=== PATIENT | female | born 1955 | race Caucasian/White ===

== ENCOUNTER 2019-07-14 20:29 | Inpatient (IN) | payer MEDICARE ==
[~2019-07-14] VITALS: Ht 167.6 cm; Wt 58.2 kg
[2019-07-14] MEDS ORDERED: IV NORMAL SALINE 1000 ML BAG IV ONE (20:45)
[2019-07-14 20:52] LABS: BASOPHILS # (AUTO) 0.1 K/uL (0.0-8.0); BASOPHILS % (AUTO) 0.9 % (0.0-2.0); EOSINOPHILS # (AUTO) 0.2 K/uL (0.0-0.7); EOSINOPHILS % (AUTO) 2.8 % (0.0-7.0); HEMATOCRIT 33.8 % (31.2-41.9); LYMPHOCYTES # (AUTO) 1.8 K/uL (20.0-40.0); LYMPHOCYTES % (AUTO) 24.1 % (20.5-51.5); MEAN CORPUSCULAR HEMOGLOBIN 33.2 uug (24.7-32.8); MEAN CORPUSCULAR HGB CONC 33 g/dL (32.3-35.6); MEAN CORPUSCULAR VOLUME 102.1 fL (75.5-95.3); MONOCYTES # (AUTO) 0.9 K/uL (2.0-10.0); MONOCYTES % (AUTO) 11.7 % (0.0-11.0); NEUTROPHILS # (AUTO) 4.5 K/uL (1.8-8.9); NEUTROPHILS % (AUTO) 60.5 % (38.5-71.5); PLATELET COUNT (AUTO) 426 K/uL (179-408); RED BLOOD CELL COUNT(AUTO) 3.31 MIL/uL (3.63-4.92); WHITE BLOOD COUNT (AUTO) 7.4 K/uL (3.8-11.8)
[2019-07-14 21:05] LABS: BILIRUBIN,DIRECT 0.1 mg/dL (0.0-0.2); BILIRUBIN,TOTAL 0.2 mg/dL (0.2-1.0); CREATININE 0.9 mg/dL (0.6-1.3); POTASSIUM 4.9 mmol/L (3.5-5.1); TOTAL PROTEIN, SERUM 7.5 g/dL (6.4-8.2)
--- NOTE | 2019-07-14 21:10 | NUR ---
PT IS AOX3, ABLE TO SPEAK CLEAR AND COMPLETE SENTENCES PT STATES: "I CAME FROM [place] AND THEY TOLD ME I HAVE TO GO WITH THE GAME FARM HELPER, BECAUSE OF THIS R ELBOW" C/O R ELBOW SWELLING, DENIES TRAUMA NOR RECENT SURGERIES TO THE SITE REPORTS DISCOMFORT TOLERABLE DENIES NVD/FEVERS/CHILLS/SOB MONITORED ACCORDINGLY +PULSES ON BOTH WRISTS, NOTED PINK COLOR, ABLE TO DO ROM WITH DISCOMFORT +CMS CHECK DONE Q15-30 MD AT BEDSIDE FOR HX AND PHYSICAL
--- NOTE | 2019-07-14 21:40 | NUR ---
DR VILLAFANA ON THE PHONE WITH ERMD DR GRAHAM PT WILL BE ADMITTED DUE TO FX OF R ULNA POSTERIOR LONG ARM FIBERGLASS SPLINT EPIC CALLED WAITING DR MELANI CUNHA CALL BACK CALL FOR BED M/S RM 316
[2019-07-14 21:48] LABS: *BILIRUBIN,URIN NEGATIVE (NEGATIVE); *BLOOD, URINE NEGATIVE (NEGATIVE); *CLARITY,URINE CLEAR (CLEAR); *COLOR,URINE YELLOW (YELLOW); *KETONES,URINE NEGATIVE (NEGATIVE); *UROBILINOGEN,URINE 0.2 E.U./dl (NORMAL); LEUKOCYTE ESTERASE ,URINE NEGATIVE (NEGATIVE); NITRITE, URINE NEGATIVE (NEGATIVE); UGLUCOSE NEGATIVE (NEGATIVE)
[2019-07-14] MEDS ORDERED: NA P133E RC (21:49)
[2019-07-14] MEDS ORDERED: MULT1TAB73 PO (21:49)
[2019-07-14] MEDS ORDERED: MAGN400O6 PO (21:49)
[2019-07-14] MEDS ORDERED: ACET325T53 PO (21:49)
[2019-07-14] MEDS ORDERED: IBUP-1955 PO (21:49)
[2019-07-14] MEDS ORDERED: COMBIVENT INH (21:49)
[2019-07-14] MEDS ORDERED: THIA100T13 PO (21:49)
[2019-07-14] MEDS ORDERED: folic acid PO (21:49)
[2019-07-14] MEDS ORDERED: TRAZ-182 PO (21:49)
[2019-07-14] MEDS ORDERED: BISA10SU61 RC (21:49)
--- NOTE | 2019-07-14 22:04 | NUR ---
HAND OFF AND SBAR GIVEN TO DARSHAN BY SUBHASH MENCHACA PT WILL BE ADMITTED TO [facility] RM 316 DX: R ELBOW FRACTURE, UNDER DR CUNHA
--- NOTE | 2019-07-14 22:05 | NUR ---
BELONGINGS LIST SIGNED/ CO-SIGNED ALL BELONGINGS ACCOUNTED FOR
--- NOTE | 2019-07-14 22:23 | NUR ---
PT TRANSPORTED TO [facility]IA [facility] BY EXTENSION EDUCATOR G20 L AC, INTACT AND INFUSING WELL ALL BELONGINGS ACCOUNTED FOR
--- NOTE | 2019-07-14 22:30 | NUR ---
RECEIVED PT FROM ER VIA [facility]. DX: RIGHT ELBOW FRACTURE. UNDER THE CARE OF DR. WEST. PT IN NO ACUTE DISTRESS. IV INTACT. MCC ASSESSMENT DONE.BELONGING LIST DONE. ADMISSION PROCESS AND CARE PLAN INITIATED. SAFETY AND COMFORT PROVIDED. WILL CONTINUE TO MONITOR.
[2019-07-14 22:45] VITALS: BP 179/86
[2019-07-15] MEDS ORDERED: ONDANSETRON 4 MG/2 ML VIAL IV PRN
[2019-07-15] MEDS ORDERED: IV D5 1/2 NS 1000 ML 1,000 ML IV PRN
[2019-07-15] MEDS ORDERED: ACETAMINOPHEN 650 MG SUPP.RECT RC PRN
[2019-07-15] MEDS ORDERED: MORPHINE SULFATE 4 MG/1 ML DISP.SYRIN IV PRN
--- NOTE | 2019-07-15 00:20 | NUR ---
PT REFUSE TO HAVE HER IV INFUSING. CHARGE NURSE AWARE. PT IN NO ACUTE DISTRESS.
[2019-07-15 05:35] VITALS: BP 140/68
[2019-07-15 06:29] LABS: BASOPHILS # (AUTO) 0.1 K/uL (0.0-8.0); BASOPHILS % (AUTO) 2.1 % (0.0-2.0); EOSINOPHILS # (AUTO) 0.2 K/uL (0.0-0.7); EOSINOPHILS % (AUTO) 3.3 % (0.0-7.0); HEMATOCRIT 36.3 % (31.2-41.9); HEMOGLOBIN 11.7 g/dL (10.9-14.3); LYMPHOCYTES # (AUTO) 1.4 K/uL (20.0-40.0); LYMPHOCYTES % (AUTO) 21.8 % (20.5-51.5); MEAN CORPUSCULAR HEMOGLOBIN 32.5 uug (24.7-32.8); MEAN CORPUSCULAR HGB CONC 32 g/dL (32.3-35.6); MEAN CORPUSCULAR VOLUME 100.7 fL (75.5-95.3); MONOCYTES # (AUTO) 0.8 K/uL (2.0-10.0); MONOCYTES % (AUTO) 12.6 % (0.0-11.0); NEUTROPHILS # (AUTO) 3.9 K/uL (1.8-8.9); NEUTROPHILS % (AUTO) 60.2 % (38.5-71.5); PLATELET COUNT (AUTO) 418 K/uL (179-408); RED BLOOD CELL COUNT(AUTO) 3.61 MIL/uL (3.63-4.92); WHITE BLOOD COUNT (AUTO) 6.4 K/uL (3.8-11.8)
[2019-07-15 06:42] LABS: BILIRUBIN,TOTAL 0.2 mg/dL (0.2-1.0); CREATININE 0.7 mg/dL (0.6-1.3); MAGNESIUM 2.3 mg/dL (1.8-2.4); POTASSIUM 4.4 mmol/L (3.5-5.1); TOTAL PROTEIN, SERUM 7.3 g/dL (6.4-8.2)
--- NOTE | 2019-07-15 06:43 | NUR ---
PT IN NO ACUTE RESPIRATORY DISTRESS. PT IV INTACT. SAFETY AND COMFORT PROVIDED. PRESCRIBED MEDICATION GIVEN AND PT TOLERATED IT WELL. WILL ENDORSE TO INCOMING NURSE FOR CONTINUITY OF CARE.
--- NOTE | 2019-07-15 08:15 | NUR ---
Received pt. resting in bed alert oriented x3. Pt. denies pain/ discomfort. Pt. denies SOB/ difficulty breathing. Pt. has IV in L UA 20 gauge intact patent saline lock. Pt. refuses fluids. Educated pt. on importance of fluids. Pt. still refused. Educated pt. on morning medication. pt. refused. morning protonix. Pt. on NPO diet by awaiting to see Dr Alexander. Pt. aware of plan. Safety measures in place. call light within reach. will continue to monitor pt.
[2019-07-15] MEDS ORDERED: BISACODYL 10 MG SUPP.RECT RC PRN (08:30)
[2019-07-15] MEDS ORDERED: MAGNESIUM HYDROXIDE 30 ML LIQUID UDC PO PRN (08:30)
[2019-07-15] MEDS ORDERED: FLEET ENEMA 133 ML BOTTLE RC PRN (08:30)
[2019-07-15] MEDS ORDERED: TRAZODONE 50 MG TABLET PO PRN (08:30)
[2019-07-15] MEDS ORDERED: Medication Not On Formulary EA (Multivitamins (Multivitamin) 1 EACH) PO SCH (09:00)
[2019-07-15] MEDS: FOLIC ACID 1 MG TABLET PO SCH (09:05)
[2019-07-15] MEDS: MULTIVITAMINS,THERAPEUTIC TABLET PO SCH (09:05)
[2019-07-15] MEDS: THIAMINE HCL 100 MG TABLET PO SCH (09:05)
[2019-07-15] MEDS: PANTOPRAZOLE SODIUM 40 MG VIAL IV SCH (09:05)
[2019-07-15] MEDS ORDERED: POLYMYXIN B SULFATE 500,000 UNITS, BACITRACIN 50,000 UNITS, NORMAL SALINE 20 ML MC ONE ×3 (11:15)
[2019-07-15 11:25] VITALS: BP 143/76
[2019-07-15] MEDS ORDERED: BUPIVACAINE PF 0.5% 30 ML VIAL ONE (11:52)
[2019-07-15] MEDS ORDERED: VANCOMYCIN 1000 MG VIAL ONE (11:52)
[2019-07-15] MEDS ORDERED: MIDAZOLAM HCL 10 MG/2 ML VIAL ONE (12:33)
--- NOTE | 2019-07-15 12:43 | NUR ---
Pt. went to surgery. Pt. signed consent form. Pt. stable. Will follow up with patient after surgery when pt. returns
[2019-07-15] MEDS ORDERED: SEVOFLURANE 250 ML BOTTLE ONE (13:33)
[2019-07-15] MEDS ORDERED: FENTANYL CITRATE 100 MCG/2 ML AMPUL ONE (14:42)
[2019-07-15] MEDS ORDERED: hydrALAZINE HCL 20 MG/1 ML VIAL ONE (15:34)
[2019-07-15] MEDS ORDERED: ONDANSETRON 4 MG/2 ML VIAL ONE (15:54)
[2019-07-15] MEDS ORDERED: HYDROMORPHONE 1 MG/1 ML DISP.SYRIN ONE (15:56)
--- NOTE | 2019-07-15 16:36 | NUR ---
Received pt. back from surgery. Pt. stable. Vital signs stable. Pt on 2 L NC. Pt. right extremity is warm, strong pulse, and strong detention attendant. Pt. with SC devices on bilateral feet. Safety measures in place. Call light within reach. Will continue to monitor pt.
[2019-07-15] MEDS: POTASSIUM CHLORIDE 20 MEQ in IV D5 1/2 NS 1000 ML 1,000 ML IV PRN (18:40)
[2019-07-15 20:04] VITALS: BP 103/56
[2019-07-15] MEDS: CEFAZOLIN 1 G in IV DEXTROSE 5% 50 ML IV SCH (20:30)
[2019-07-15] MEDS: HYDROCODONE/APAP 10-325 MG TABLET PO PRN (22:02)
[2019-07-16] MEDS: POTASSIUM CHLORIDE 20 MEQ in IV D5 1/2 NS 1000 ML 1,000 ML IV PRN ×2 (05:25→20:49)
[2019-07-16] MEDS: CEFAZOLIN 1 G in IV DEXTROSE 5% 50 ML IV SCH (05:25)
[2019-07-16 05:56] VITALS: BP 122/72
[2019-07-16 06:42] LABS: BASOPHILS # (AUTO) 0.1 K/uL (0.0-8.0); BASOPHILS % (AUTO) 0.8 % (0.0-2.0); EOSINOPHILS # (AUTO) 0.1 K/uL (0.0-0.7); EOSINOPHILS % (AUTO) 0.7 % (0.0-7.0); HEMATOCRIT 33.7 % (31.2-41.9); HEMOGLOBIN 10.7 g/dL (10.9-14.3); LYMPHOCYTES # (AUTO) 1.8 K/uL (20.0-40.0); LYMPHOCYTES % (AUTO) 19.8 % (20.5-51.5); MEAN CORPUSCULAR HEMOGLOBIN 32.7 uug (24.7-32.8); MEAN CORPUSCULAR HGB CONC 32 g/dL (32.3-35.6); MEAN CORPUSCULAR VOLUME 103.3 fL (75.5-95.3); MONOCYTES % (AUTO) 10.5 % (0.0-11.0); NEUTROPHILS # (AUTO) 6.3 K/uL (1.8-8.9); NEUTROPHILS % (AUTO) 68.2 % (38.5-71.5); PLATELET COUNT (AUTO) 341 K/uL (179-408); RED BLOOD CELL COUNT(AUTO) 3.27 MIL/uL (3.63-4.92); WHITE BLOOD COUNT (AUTO) 9.3 K/uL (3.8-11.8)
--- NOTE | 2019-07-16 06:46 | NUR ---
patient received lying in bed sleeping. v/s stable and no signs of acute distress throughout shift. c/o of pain and norco 10 administered x1. o2 sat 100 on RA. afebrile. will continue to monitor and endorse to morning nurse accordingly.
[2019-07-16 06:56] LABS: CREATININE 0.7 mg/dL (0.6-1.3); MAGNESIUM 2.2 mg/dL (1.8-2.4); PHOSPHOROUS 3.4 mg/dL (2.5-4.9); POTASSIUM 4.6 mmol/L (3.5-5.1)
--- NOTE | 2019-07-16 08:00 | NUR ---
Received pt. resting in bed alert oriented x3. Pt. denies pain/ discomfort. Pt. denies SOB/ difficulty breathing. Pt. has IV in L forearm 22 gauge intact patent running prescribed fluids. Safety measures in place. call light within reach. will continue to monitor pt.
[2019-07-16] MEDS: HYDROCODONE/APAP 10-325 MG TABLET PO PRN (08:29)
[2019-07-16] MEDS: FOLIC ACID 1 MG TABLET PO SCH (08:29)
[2019-07-16] MEDS: PANTOPRAZOLE SODIUM 40 MG VIAL IV SCH (08:29)
[2019-07-16] MEDS: MULTIVITAMINS,THERAPEUTIC TABLET PO SCH (08:29)
[2019-07-16] MEDS: THIAMINE HCL 100 MG TABLET PO SCH (08:29)
[2019-07-16 12:14] VITALS: BP 134/75
[2019-07-16 15:46] VITALS: BP 114/62
[2019-07-16] MEDS: MORPHINE SULFATE 4 MG/1 ML DISP.SYRIN IV PRN (20:07)
[2019-07-16 20:19] VITALS: BP 132/67
[2019-07-17] MEDS: MORPHINE SULFATE 4 MG/1 ML DISP.SYRIN IV PRN ×2 (05:22→16:17)
--- NOTE | 2019-07-17 05:29 | NUR ---
patient received in bed lying comfortably watching tv. no signs of acute distress and v/s stable throughout shift. c/o of pain, administered morphine 4mg, 2x on my shift. pain resolved. safety and comfort measures provided at all times. bed in lowest position, side rails up x2, and bed alarm on. will continue to monitor and endorse accordingly.
[2019-07-17 05:54] VITALS: BP 149/71
[2019-07-17 06:11] LABS: BASOPHILS # (AUTO) 0.1 K/uL (0.0-8.0); BASOPHILS % (AUTO) 1.2 % (0.0-2.0); EOSINOPHILS # (AUTO) 0.1 K/uL (0.0-0.7); EOSINOPHILS % (AUTO) 1.3 % (0.0-7.0); HEMATOCRIT 34.8 % (31.2-41.9); HEMOGLOBIN 11.3 g/dL (10.9-14.3); LYMPHOCYTES # (AUTO) 1.4 K/uL (20.0-40.0); LYMPHOCYTES % (AUTO) 15.9 % (20.5-51.5); MEAN CORPUSCULAR HEMOGLOBIN 33.1 uug (24.7-32.8); MEAN CORPUSCULAR HGB CONC 33 g/dL (32.3-35.6); MEAN CORPUSCULAR VOLUME 101.9 fL (75.5-95.3); MONOCYTES # (AUTO) 1.2 K/uL (2.0-10.0); MONOCYTES % (AUTO) 13.3 % (0.0-11.0); NEUTROPHILS # (AUTO) 6.1 K/uL (1.8-8.9); NEUTROPHILS % (AUTO) 68.3 % (38.5-71.5); PLATELET COUNT (AUTO) 330 K/uL (179-408); RED BLOOD CELL COUNT(AUTO) 3.41 MIL/uL (3.63-4.92); WHITE BLOOD COUNT (AUTO) 8.9 K/uL (3.8-11.8)
[2019-07-17 06:43] LABS: CREATININE 0.7 mg/dL (0.6-1.3); MAGNESIUM 1.9 mg/dL (1.8-2.4); PHOSPHOROUS 3.5 mg/dL (2.5-4.9); POTASSIUM 4.1 mmol/L (3.5-5.1)
[2019-07-17] MEDS ORDERED: PANTOPRAZOLE SODIUM 40 MG TABLET.DR PO SCH ×2 (07:00)
--- NOTE | 2019-07-17 07:54 | NUR ---
Dr. milligan contacted for high BP. orders received. Ativan 0.5 Iv push q8h prn for agitation, 500 cc NS IVF BOLUS at once, hydralazine 10 mg IV q6h prn for bp >160. orders placed and endorsed to morning nurse to administer bolus and prn medication as needed.
[2019-07-17] MEDS ORDERED: LORAZEPAM 2 MG/1 ML VIAL IV PRN (08:00)
[2019-07-17] MEDS ORDERED: hydrALAZINE HCL 20 MG/1 ML VIAL IV PRN (08:00)
[2019-07-17] MEDS ORDERED: IV NORMAL SALINE 500 ML IV ONE (08:00)
[2019-07-17] MEDS: FOLIC ACID 1 MG TABLET PO SCH (08:13)
[2019-07-17] MEDS: MULTIVITAMINS,THERAPEUTIC TABLET PO SCH (08:13)
[2019-07-17] MEDS: THIAMINE HCL 100 MG TABLET PO SCH (08:14)
--- NOTE | 2019-07-17 08:40 | NUR ---
Received pt. resting in bed alert oriented x3. Provided pt. with NS 500 mls bolus as ordered by . Rechecked BP at this moment BP is 142/ 86. Will not give hydralazine unless BP > [address] Will Recheck BP again after bolus. Pt. denies pain/ discomfort. Pt. denies SOB/ difficulty breathing. Pt. has IV in L forearm 22 gauge intact patent running prescribed fluids. Safety measures in place. call light within reach. will continue to monitor pt. Pt. aware of discharge plans if cleared by Dr. Alexander
--- NOTE | 2019-07-17 11:44 | NUR ---
Spoke to Dr. Alexander over the phone for discharge of pt. He cleared pt for discharge and to follow up with him in 1 week.
[2019-07-17 11:49] VITALS: BP 127/72
--- NOTE | 2019-07-17 15:37 | NUR ---
Pt. to be discharged back to [facility]. Awaiting son to transport pt. back to [place] at 7 PM today. Pt. aware of discharge plans. Case management and charge nurse aware. Will call [facility] for report
[2019-07-17 16:10] VITALS: BP 134/88
--- NOTE | 2019-07-17 19:00 | NUR ---
RECEIVED REPORT FROM DEANDRE MENCHACA, PAPER WORK WAS DONE, AND DEANDRE MENCHACA GAVE REPORT TO CARMELITA HO. BOARD AND CARE. PATIENT ALERT ORIENTED NO COMPLAIN OF PAIN, R ARM WITH SOFT CAST AND SLING IN PLACE. CONT TO MONITOR.
--- NOTE | 2019-07-17 19:25 | NUR ---
Gave report to Alexandro at [facility] around 4 PM and stated pt. will come around 7-8 PM as son is transporting her. Belongings list signed by pt. All belongings with pt. All discharge paper work signed by pt. and given to pt. along with copy. IV in place. ID band in place. Will endorse to PM nurse to remove. Transport paperwork completed copy in file. Folder given to PM nurse to give to facility and pt. has all paper work and belongings. Instructed pt. to see Dr. Alexander in 1 week.
[2019-07-17] MEDS ORDERED: KETOROLAC TROMETHAMINE 30 MG INJ IM ONE (19:39)
[2019-07-17] MEDS ORDERED: DEXAMETHASONE SOD PHOSPHATE 4 MG INJ IV ONE (19:39)
[2019-07-17] MEDS ORDERED: PROPOFOL 200 MG/20 ML BOTTLE IV ONE (19:39)
[2019-07-17] MEDS ORDERED: ETOMIDATE 20 MG/10 ML VIAL IV ONE (19:39)
[2019-07-17] MEDS ORDERED: ONDANSETRON 4 MG/2 ML VIAL IV ONE (19:39)
[2019-07-17] MEDS ORDERED: LIDOCAINE-MPF 2% 5 ML VIAL IJ ONE (19:39)
[2019-07-17] MEDS ORDERED: CEFAZOLIN 1 G VIAL IM ONE (19:39)
[2019-07-17] MEDS ORDERED: IV NORMAL SALINE 1000 ML BAG IV ONE ×2 (19:39)
[2019-07-17] MEDS ORDERED: EPHEDRINE SULFATE 50 MG/ML AMPUL IM ONE (19:39)
[2019-07-17] MEDS ORDERED: SEVOFLURANE 250 ML BOTTLE IH ONE (19:39)
--- NOTE | 2019-07-17 19:43 | NUR ---
PATIENT DISCHARGE TO [facility], BOARD AND CARE, TOOK ALL BELONGINGS. SON ELEVATOR WORKER THE PATIENT VIA PRIVATE CAR. GIVEN ALL PAPER WORKS AND INSTRUCTIONS, TOOK OUT IV LINE. PATIENT R ARM WITH SOFT CAST, AND SLING IN PLACE. INSTRUCTED PATIENT AND SON TO GIVE ALL PAPER WORK TO [place] STAFF FOR CONTINUATION OF CARE.
== END 2019-07-17 19:40 | DRG 493 ==
LOC: ER 20:32 → MEDSURG3 22:17
PROVIDERS: ADMIT Internal Medicine; ATTEND Student in an Organized Health Care Education/Training Program
PROC: 0PSF04Z Reposition Right Humeral Shaft with Internal Fixation Device, Open Approach (ICD-10-PCS; principal; 2019-07-15)
DX: S42.451A Displaced fracture of lateral condyle of right humerus, initial encounter for closed fracture (principal); K86.1 Other chronic pancreatitis; R79.89 Other specified abnormal findings of blood chemistry; X58.XXXA Exposure to other specified factors, initial encounter; Y92.89 Other specified places as the place of occurrence of the external cause; F17.210 Nicotine dependence, cigarettes, uncomplicated; F41.9 Anxiety disorder, unspecified; J44.9 Chronic obstructive pulmonary disease, unspecified; F10.10 Alcohol abuse, uncomplicated; Y90.9 Presence of alcohol in blood, level not specified
CPT/HCPCS: 36415; 70030-TC; 71045; 73060; 73080; 83690; 83735; 84100; 85025; 85610; 85730; 87086; 93005; A4649; A4663; C9113; G0378; J0360; J0690; J1100; J1170; J1885; J2250; J2270; J2405; J3010; J3370; J3480; J3490; J7030; J7040; J7060

== ENCOUNTER 2019-08-16 13:23 | Emergency (ER) | payer SELFPAY ==
[~2019-08-16] VITALS: Ht 162.6 cm; Wt 63.5 kg
[~2019-08-16 13:23] MED LIST: ACET325T53 PO; BISA10SU61 RC; COMBIVENT INH; IBUP-1955 PO; MAGN400O6 PO; MULT1TAB73 PO; NA P133E RC; THIA100T13 PO; TRAZ-182 PO; folic acid PO
--- NOTE | 2019-08-16 18:46 | NUR ---
private ambulance at bedside to transfer the pt to residence.Patient discharged to home in stable conditon. Written and verbal after care instructions given. Patient verbalizes understanding of instructions.pt walks in steady gait. no sign of distress.
--- NOTE | 2019-08-16 19:06 | NUR ---
Called report to "neil" at [facility]. Gave RX and d/c instructions to pt, verbalized understanding. Gave report to EMT's, pt transported.
[2019-08-16 19:13] VITALS: BP 170/96
== END 2019-08-16 19:05 | disposition home or self-care (01) ==
LOC: ER 13:24
DX: S42.301D Unspecified fracture of shaft of humerus, right arm, subsequent encounter for fracture with routine healing (principal); J44.9 Chronic obstructive pulmonary disease, unspecified; F41.9 Anxiety disorder, unspecified; F32.9 Major depressive disorder, single episode, unspecified; Z88.8 Allergy status to other drugs, medicaments and biological substances; Z79.899 Other long term (current) drug therapy; Z79.1 Long term (current) use of non-steroidal anti-inflammatories (NSAID); X58.XXXD Exposure to other specified factors, subsequent encounter
CPT/HCPCS: A4663